=== PATIENT | female | born 1965 | race Caucasian/White ===

== ENCOUNTER 2016-09-13 16:15 | Emergency (ER) | payer MEDICAID ==
[~2016-09-13] VITALS: Ht 162.6 cm; Wt 80.0 kg
[2016-09-13] MEDS ORDERED: DAYQUIL (16:23)
[2016-09-13] MEDS ORDERED: ADVIL (16:23)
[2016-09-13 20:49] VITALS: BP 146/92
== END 2016-09-13 20:49 | disposition home or self-care (01) ==
LOC: ER 16:19
DX: J32.9 Chronic sinusitis, unspecified (principal)
CPT/HCPCS: 71010; 99283